=== PATIENT | male | born 1965 | race Caucasian/White ===

== ENCOUNTER 2024-05-10 07:52 | Emergency (ER) | payer BC ==
[2024-05-10] MEDS: Cyclobenzaprine 10 MG Tab PO ONE (08:19)
[2024-05-10] MEDS: HYDROmorphone 2 MG/ML Syringe IVPUSH ONE (08:19)
[2024-05-10] MEDS ORDERED: Sodium Chloride 0.9% 10 ML Syringe FLUSH PRN (13:27)
== END 2024-05-10 09:05 | disposition home or self-care (01) ==
LOC: LB.ED 07:52
DX: S22.32XA Fracture of one rib, left side, initial encounter for closed fracture (principal); Z79.84 Long term (current) use of oral hypoglycemic drugs; Z79.899 Other long term (current) drug therapy; W07.XXXA Fall from chair, initial encounter
CPT/HCPCS: 71101; 96374; 99283; A9270; J1171